=== PATIENT | male | born 1970 | race Caucasian/White ===

== ENCOUNTER 2023-11-17 16:30 | Emergency (ER) | payer BC, SELFPAY ==
[2023-11-17 16:33] VITALS: BP 140/95
--- NOTE | 2023-11-17 17:27 | ED.GENMED ---
History of Present Illness
General
Chief Complaint: Musculo-Skeletal Complaint
Source: patient
Exam Limitations: none
Time Seen by Provider: 11/17/23 17:20
Nursing documentation reviewed up to this point in time: agreed with
Travel History
Have you had any contact with someone who has COVID-19?: No
Do you have any symptoms of coronavirus? Fever > 100 degrees, chills, cough, shortness of breath, sore throat, loss of taste or smell, muscle aches, or headache?: No
History of Present Illness
History of Present Illness:
Patient is a 53-year-old male who presents to the ER complaining of pain. He complains of pain to the right lower back/hip area which radiates into his abdomen. It has been increasing since 12 PM. He denies any injury. He denies any history of
vomiting but does have slight nausea. Pain is present despite movement. He denies any fever chills rash. He denies any injury.
Past History
Past History
ED Past Medical History: GERD and Psychiatric (Anxiety); Negative HTN, IDDM, NIDDM or [place]
Social History
Tobacco: Non-smoker
Alcohol: None
Drug: None
Personal:
Living: with family
Employment: Employed
Family History
Family History: Other (Noncontributory); Negative Sudden
Review of Systems
Review of Systems
Allergies reviewed?: Yes
All Other Systems: ROS reviewed and negative except as documented in HPI and ROS
Constitutional: Reports no symptoms; Denies fever
Respiratory: Reports no symptoms
Cardiac: Reports no symptoms
ABD/GI: Denies nausea, vomiting or diarrhea
: Reports other (pain to right lower back )
Musculoskeletal: Reports back pain (right lower back pain )
Skin: Reports no symptoms
Neurological: Reports no symptoms
Psychiatric: Reports no symptoms
Phy Exam
General Physical Exam
General Presentation: no apparent distress
General age: appears stated age
General Skin: warm and dry
General Habitus: normal
General Mental: alert
Gastrointestinal Exam
Gastrointestinal Exam: soft and other ( mild tender to rlq )
Neurological Exam
Neurological Exam: alert and oriented x3
Musculoskeletal Exam
Musculoskeletal Exam: full ROM
Skin Exam
Skin Exam: normal color and warm/dry
Psychiatric Exam
Psychiatric Exam: normal mood/affect
Course
Orders/Labs/Results
Orders:
Orders
11/17/23 17:27
IV Insert/Care/Rem.- Treatment PRN
0.9% Sodium Chloride 1000 ml [Nss] 1,000 ml IV BOLUS
Ketorolac [Toradol] 15 mg IV NOW STA
11/17/23 18:00
CT Abd/pel W Iv And Oral Contr Urgent
Comment:
Reason For Exam: right abd pain
Complete Blood Count/With Diff Urgent
Comprehensive Metabolic Panel Urgent
Lipase Urgent
Iohexol [Omnipaque] See Protocol PO NOW STA
11/17/23 19:36
Urinalysis Reflex To Culture Urgent
Date Specimen was Collected: 11/17/23
Time Specimen was Collected: 19:30
11/17/23 21:34
Vital Signs- Treatment ONCE
Frequency: Once
Abnormal Lab Results
11/17/23 11/17/23
18:00 19:36
WBC 12.7 H 10^3/uL
(4.8-10.8)
RBC 4.64 L 10^6/uL
(4.70-6.10)
Absolute Neuts (auto) 11.4 H 10^3/uL
(1.4-6.5)
Absolute Lymphs (auto) 0.7 L 10^3/uL
(1.2-3.4)
Neutrophils % 90.0 H %
(42.2-75.2)
Lymphocytes % 5.6 L %
(20.5-51.1)
BUN 24 H mg/dl
(9-20)
Glucose 113 H mg/dl
(70-99)
Urine Ketones Trace A
(Negative)
11/17/23 18:00
11/17/23 18:00
Vital Signs
Initial and Last Documented VS:
Initial Vital Signs
Temp Pulse Resp BP Pulse Ox
98.0 F 64 16 140/95 98
11/17/23 16:33 11/17/23 16:33 11/17/23 16:33 11/17/23 16:33 11/17/23 16:33
Last Documented Vital Signs
Temp Pulse Resp BP Pulse Ox
98.0 F 64 16 140/95 98
11/17/23 16:33 11/17/23 16:33 11/17/23 16:33 11/17/23 16:33 11/17/23 16:33
MDM/Problems Addressed
Differential Diagnosis Includes:
Not limited to appendicitis, renal colic, muscle pain
MDM/Problems Addressed:
Patient presented with pain to the right lower abdomen/flank area. Pain persisted despite movement. On exam however he is mildly tender in the right lower quadrant white count minimally elevated normal renal function has no blood in urine.
Patient was given Toradol fluids Toradol did have symptoms. CAT scan with oral and IV contrast done which is negative for appendicitis sigmoid diverticulosis and no obstruction or free air. Unclear cause of patient's pain there is no rash shingles
considered I did review this with patient no fever. Will DC with ibuprofen with close outpatient follow-up by pcp.
In addition I did discuss the patient that since he is 53 he will need a colonoscopy as he has never had one Diverticulosis was found on CAT scan but not diverticulitis
*Radiology
Radiology exam reviewed: radiology read reviewed
*Pulse Oximetry
Patient hypoxic: no
*Critical Care Note
Total Time (30-74mins, 75-104mins- exclusive of procedures): Not Applicable
ED Attending Note
-
Portions of this chart may have been created with voice recognition software.� Occasional wrong word or��sound alike� substitutions may have occurred due to the inherent limitations of voice recognition software.
Discharge Plan
Departure
Patient Disposition: Home (Routine Discharge)
Date of Disposition: 11/17/23
Time of Disposition: 21:33
Patient with high blood pressure during this ER visit?: Yes
Condition: Fair
Covid-19: Not Applicable
Discharge Problem:
Abdominal pain
Instructions: Abdominal Pain, Adult ED, BLOOD PRESSURE
Prescriptions:
No Action
aspirin [Aspir-Low] 81 MG tablet,delayed release (DR/EC)
81 mg PO DAILY
budesonide 0.5 MG/2 ML suspension for nebulization
0.5 mg inhalation R BID
albuterol sulfate 1 PUFF HFA aerosol inhaler
1 puff inhalation R Q4HPRN PRN (Reason: asthma)
esomeprazole magnesium [Nexium] 20 MG capsule,delayed release(DR/EC)
20 mg PO DAILY
fish oil-dha-epa 1 EACH capsule
1 ea PO DAILY
Referrals:
UNKNOWN - PT DOES,NOT KNOW [Family Provider] -
Sandi Mcdonald, DO [Active] -
Activity Restrictions/Additional Instructions:
you may take Ibuprofen 600 mg every 8 hours with food. As discussed there is no clear cause for your pain identified here in the ER. Follow-up close with your family doctor in the next 2 to 3 days call tomorrow to make an appointment but return
if any worsening of symptoms. also as discussed you will need to see GI at some point for colonoscopy.
Interventions
Interventions:
*Risk Screen - Suicide Last Done: 11/17/23 18:13
*General Assessment Last Done: 11/17/23 18:13
*Neglect/Abuse Screening Last Done: 11/17/23 18:13
*ED COVID-19 Vaccine History Last Done: 11/17/23 16:33
*Nursing Disposition Last Done: 11/17/23 22:05
ED-Musculoskeletal Assessment Last Done: 11/17/23 18:11
Discharge Date and Time
Discharge Date/Time: 11/17/23 22:06
[2023-11-17 17:36] VITALS: BMI 24.4
[2023-11-17] MEDS: NSS 1000 IV (17:55)
[2023-11-17] MEDS: TORADOL 15 MG IV (17:56)
[2023-11-17] MEDS: OMNIPAQUE 50 ML PO (18:07)
[2023-11-17 18:09] LABS: % Basophils 0.4 % (0-2); % Eosinophils 0.8 % (0-6); % Immature Granulocytes 0.3 % (0-0.5); % Lymphocytes 5.6 % (20.5-51.1); % Monocytes 2.9 % (1.7-9.3); Absolute Basophils 0.1 10^3/uL (0-0.2); Absolute Eosinophils 0.1 10^3/uL (0-0.7); Absolute Lymphocytes 0.7 10^3/uL (1.2-3.4); Absolute Monocytes 0.4 10^3/uL (0.1-0.6); Absolute Neutrophils 11.4 10^3/uL (1.4-6.5); Hematocrit 41.1 % (39.0-52.0); Hemoglobin 14.4 g/dL (13.0-18.0); Mean Corpuscular Volume 88.6 fL (80.0-94.0); Mean Platelet Volume 10.2 fL (7.4-10.4); Nucleated Red Blood Cells % 0 % (-); Platelet Count 187 10^3/uL (130-400); Red Blood Cell Count 4.64 10^6/uL (4.70-6.10); Red Cell Dist. Width 12.3 % (11.5-14.5); White Blood Cell Count 12.7 10^3/uL (4.8-10.8)
[2023-11-17 18:28] LABS: ALT (SGPT) 36 U/L (0-50); AST (SGOT) 39 U/L (17-59); Albumin 4.6 g/dl (3.5-5.0); Alkaline Phosphatase 59 U/L (38-126); Blood Urea Nitrogen 24 mg/dl (9-20); Calcium 9.9 mg/dl (8.4-10.2); Carbon Dioxide 23 mmol/L (22-30); Chloride 106 mmol/L (98-107); Estimated Creatinine Clearance 102 ml/min; Glucose 113 mg/dl (70-99); Lipase 117 U/L (23-300); Potassium 4.3 mmol/L (3.5-5.1); Sodium 135 mmol/L (135-145); Total Bilirubin 0.6 mg/dl (0.2-1.3); Total Protein 7.2 g/dl (6.3-8.2); eGFR > 60.00
[2023-11-17 19:46] LABS: Urine Albumin Negative (Neg - Trace); Urine Bilirubin Negative (Negative); Urine Character Clear (Clear); Urine Color Straw; Urine Glucose Negative (Negative); Urine Ketone Trace (Negative); Urine Leukocyte Negative (Negative); Urine Nitrite Negative (Negative); Urine Occult Blood Negative (Negative); Urine Specific Gravity 1.025 (<1.030); Urine Urobilinogen Negative (Neg - 1+)
== END 2023-11-17 22:06 | disposition home or self-care (01) ==
LOC: EMR 16:30
PROVIDERS: Nurse Practitioner; EMERGENCY PHYSICIAN Student in an Organized Health Care Education/Training Program
DX: R10.9 Unspecified abdominal pain (principal); R03.0 Elevated blood-pressure reading, without diagnosis of hypertension; K57.90 Diverticulosis of intestine, part unspecified, without perforation or abscess without bleeding; K21.9 Gastro-esophageal reflux disease without esophagitis; F41.9 Anxiety disorder, unspecified; J45.909 Unspecified asthma, uncomplicated
CPT/HCPCS: 99285; 74177; 80053; 81003; 83690; 85025; Q9967

== ENCOUNTER 2025-07-05 14:02 | Emergency (ER) | payer BC, SELFPAY ==
[2025-07-05 14:05] VITALS: BP 140/102
[2025-07-05 14:36] VITALS: BMI 25.1
--- NOTE | 2025-07-05 14:37 | ED.GENMED ---
History of Present Illness
General
Chief Complaint: Cardiac Symptoms
Time Seen by Provider: 07/05/25 14:25
History of Present Illness
History of Present Illness:
Patient presents to the emergency department with an episode of lightheadedness and palpitations. Symptoms started this morning. He notes feeling generally unwell today. States that he was having a little bit of trouble catching his breath on his
morning walk. He went to get pizza and felt that his heart was beating irregularly. He checked his pulse and found to be in trigeminy. There was no syncopal event. No chest pain. No leg swelling.
Past History
Past History
ED Past Medical History: GERD and Psychiatric (Anxiety); Negative HTN, IDDM, NIDDM or [place]
Social History
Tobacco: Non-smoker
Alcohol: None
Drug: None
Personal:
Living: with family
Employment: Employed
Family History
Family History: Other (Noncontributory); Negative Sudden
Phy Exam
Physical Exam
Physical Exam:
GENERAL APPEARANCE: NAD, well developed/ well nourished
EYES lids/conjunctiva normal
EARS/NOSE/THROAT Mucous membranes moist, uvula midline without oral pharyngeal erythema, exudate or swelling
HEAD/NECK normocephalic atraumatic, neck is supple.
RESPIRATORY respiratory effort normal, speaks in full sentences, no accessory muscle use. Lungs clear to auscultation without rhonchi, wheezes, rales
CARDIAC regular rate, frequent ectopy
ABDOMINAL Soft, ND/NT. No pulsatile masses on exam, rebound tenderness, Remy sign or pain over Mcburney's point.
MUSCLES/EXTREMITIES No abnormal range of motion, no swelling.
SKIN Warm, pink and dry. No rashes
NEUROLOGICAL Speech is clear and appropriate. Normal level of consciousness. 5/5 strength in all extremities.
PSYCH Normal mood and affect. Judgement/competence is appropriate
Course
Orders/Labs/Results
Orders:
Orders
07/05/25 14:04
EKG [Electrocardiogram (*1)] Urgent
Reason for Study: Chest Pain
EKG- Treatment ONCE
07/05/25 14:36
CR Chest - 2 Views Urgent
Comment:
Reason For Exam: sob
07/05/25 14:50
Basic Metabolic Panel Urgent
Complete Blood Count/With Diff Urgent
D-Dimer Urgent
Magnesium Urgent
Troponin I Urgent
07/05/25 17:23
Electrocardiogram (*1) Urgent
Reason for Study: Palpitations
07/05/25 17:47
Troponin I Urgent
Abnormal Lab Results
07/05/25
14:50
MCH 31.1 H pg
(27.0-31.0)
MPV 10.7 H fL
(7.4-10.4)
Absolute Lymphs (auto) 1.1 L 10^3/uL
(1.2-3.4)
Lymphocytes % 19.9 L %
(20.5-51.1)
BUN 23 H mg/dl
(9-20)
Glucose 101 H mg/dl
(70-99)
07/05/25 14:50
07/05/25 14:50
Vital Signs
Initial and Last Documented VS:
Initial Vital Signs
Temp Pulse Resp BP Pulse Ox
98.2 F 64 20 140/102 99
07/05/25 14:05 07/05/25 14:05 07/05/25 14:05 07/05/25 14:05 07/05/25 14:05
Last Documented Vital Signs
Temp Pulse Resp BP Pulse Ox
98.2 F 77 17 126/90 98
07/05/25 14:05 07/05/25 18:30 07/05/25 18:30 07/05/25 18:00 07/05/25 18:30
*Pulse Oximetry
SaO2: 98
Oxygen Mode of Delivery: Room air
Patient hypoxic: no
*Critical Care Note
Total Time (30-74mins, 75-104mins- exclusive of procedures): Not Applicable
ED Attending Note
ED Attending Note
ED Attending Note:
patient with palppitations found to have PACs. Hemodynamically stable. No other concerning findings on EKG. No electrolyte or metabolic explanation. 2 set troponin negative. Patient chest pain free. Will dc with cardiology follow up
-
Portions of this chart may have been created with voice recognition software.� Occasional wrong word or��sound alike� substitutions may have occurred due to the inherent limitations of voice recognition software.
Discharge Plan
Departure
Patient Disposition: Home (Routine Discharge)
Date of Disposition: 07/05/25
Time of Disposition: 18:34
Patient with high blood pressure during this ER visit?: Yes
Discharge Problem:
Heart palpitations, Near syncope, PAC (premature atrial contraction)
Instructions: Overview of heart arrhythmias
Prescriptions:
No Action
aspirin [Aspir-Low] 81 MG tablet,delayed release (DR/EC)
81 mg PO DAILY
budesonide 0.5 MG/2 ML suspension for nebulization
0.5 mg inhalation R BID
albuterol sulfate 1 PUFF HFA aerosol inhaler
1 puff inhalation R Q4HPRN PRN (Reason: asthma)
esomeprazole magnesium [Nexium] 20 MG capsule,delayed release(DR/EC)
20 mg PO DAILY
fish oil-dha-epa 1 EACH capsule
1 ea PO DAILY
Referrals:
Colby Strauss MD [Family Provider, Family Practice]
Juan Trejo MD [Active, Cardiology]
Interventions
Interventions:
*Risk Screen - Suicide Last Done: 07/05/25 14:05
*General Assessment Last Done: 07/05/25 14:31
*Neglect/Abuse Screening Last Done: 07/05/25 14:31
*ED- Fall Risk Assessment Last Done: 07/05/25 14:31
*ED COVID-19 Vaccine History Last Done: 07/05/25 14:31
*ED Influenza Vaccine History Last Done: 07/05/25 14:31
*Nursing Disposition Last Done: 07/05/25 18:52
ED- Pulmonary Assessment Last Done: 07/05/25 14:37
ED- Cardiac Assessment Last Done: 07/05/25 14:37
Discharge Date and Time
Discharge Date/Time: 07/05/25 18:53
Print Language: ARGENTINE
[2025-07-05 15:03] LABS: Hematocrit 43.5 % (39.0-52.0); Hemoglobin 15.1 g/dL (13.0-18.0); Mean Corp Hgb Conc. 34.7 g/dL (33.0-37.0); Mean Corpuscular Volume 89.5 fL (80.0-94.0); Nucleated Red Blood Cells % 0 % (-); Platelet Count 182 10^3/uL (130-400); Red Cell Dist. Width 12.1 % (11.5-14.5)
[2025-07-05 15:14] LABS: D-Dimer 0.33 ug/mlFEU (0.00-0.50)
[2025-07-05 15:26] LABS: Blood Urea Nitrogen 23 mg/dl (9-20); Calcium 9.3 mg/dl (8.4-10.2); Carbon Dioxide 22 mmol/L (22-30); Chloride 107 mmol/L (98-107); Estimated Creatinine Clearance 89 ml/min; Glucose 101 mg/dl (70-99); Magnesium 2.1 mg/dl (1.6-2.3); Potassium 4.1 mmol/L (3.5-5.1); Sodium 137 mmol/L (135-145); eGFR > 60.00
[2025-07-05 15:28] LABS: Troponin I 0.018 ng/ml
[2025-07-05 16:56] VITALS: BP 124/91
[2025-07-05 17:00] VITALS: BP 119/85
[2025-07-05 18:00] VITALS: BP 126/90
[2025-07-05 18:21] LABS: Troponin I < 0.012 ng/ml
== END 2025-07-05 18:53 | disposition home or self-care (01) ==
LOC: EMR 14:02
PROVIDERS: EMERGENCY PHYSICIAN Emergency Medicine; FAMILY PHYSICIAN Family Medicine
DX: R00.2 Palpitations (principal); R55 Syncope and collapse; I49.1 Atrial premature depolarization; R03.0 Elevated blood-pressure reading, without diagnosis of hypertension; K21.9 Gastro-esophageal reflux disease without esophagitis; F41.9 Anxiety disorder, unspecified; Z79.82 Long term (current) use of aspirin
CPT/HCPCS: 99284; 71046; 80048; 83735; 84484; 85025; 85379; 93005

== ENCOUNTER → 2025-07-28 07:30 | Outpatient (REF) | payer BC, SELFPAY | LOC: RCS 07:30 | PROVIDERS: ATTENDING PHYSICIAN Student in an Organized Health Care Education/Training Program; FAMILY PHYSICIAN Family Medicine | DX: R06.02 Shortness of breath (principal) | CPT/HCPCS: 93017 ==

== ENCOUNTER 2025-07-30 08:41 | Emergency (ER) | payer BC, SELFPAY ==
[2025-07-30 08:54] VITALS: BP 116/79
[2025-07-30 08:59] VITALS: BMI 27.5
[2025-07-30 09:00] VITALS: BP 125/91
--- NOTE | 2025-07-30 09:09 | ED.GENMED ---
History of Present Illness
General
Chief Complaint: Chest Pain
Source: patient
Time Seen by Provider: 07/30/25 08:46
History of Present Illness
History of Present Illness:
55-year-old male with past medical history of GERD, asthma, anxiety, recently dealing with palpitations seen in this emergency department a little less than 1 month ago presenting back to the emergency department with EMS for evaluation after he was
at [facility] doing some light exercise when he started to get some chest discomfort and palpitations, patient felt near syncopal but never passed out, was able to get back to his car to drive home but did not feel well the entire time home.
After getting home he felt he needed to have a bowel movement but never had to and felt slightly nauseous, notified his daughter acted EMS. EMS provided the patient with 3 sublingual nitroglycerin as well as aspirin with reported relief of
symptoms. Patient did follow-up with cardiology following his visit to the ER last month and was arranged for an outpatient stress test which she completed which she states was normal during the exercise but during the cooldown period was noted to
have some type of abnormality and is scheduled to wear a Holter monitor next week. At time of my exam patient states he still feels as if he is not back to fully normal but is declining any chest pain, shortness of breath, abdominal pain, nausea or
vomiting or any other concerns
Past History
Past History
ED Past Medical History: Asthma, GERD and Psychiatric (Anxiety); Negative HTN, IDDM, NIDDM or [place]
ED Past Surgical History: Orthopedic
Social History
Tobacco: Non-smoker
Alcohol: None
Drug: None
Personal:
Living: with family
Employment: Employed
Family History
Family History: Other (Noncontributory); Negative Sudden
Review of Systems
Review of Systems
All Other Systems: ROS reviewed and negative except as documented in HPI and ROS
Phy Exam
Physical Exam
Physical Exam:
GENERAL: Alert , in no apparent distress, anxious affect
HEAD: Normocephalic atraumatic
EYE: Clear conjunctiva
NECK: Supple
ENT: mmm.
CARDIAC: Regular rate and rhythm, occasional PAC on telemetry .
LUNGS: Clear breath sounds bilaterally, no acute respiratory distress, no wheezes/rales/rhonchi
ABDOMEN: Soft, without focal tenderness, no r/g, no cvat
NEUROLOGICAL: Alert and oriented
SKIN: Warm and dry, skin intact.
MUSCULOSKELETAL: No edema, well perfused.
PSYCH: Normal and appropriate interaction.
Scores
Heart Failure Risk
Heart Failure Risk Score: Not Applicable
Heart Score for Chest Pain Patients
STEMI patient?: Not applicable
Withdrawal Assessment of Alcohol
Withdrawal Assessment Completed?: Not applicable
Course
Orders/Labs/Results
Orders:
Orders
07/30/25 08:44
Electrocardiogram (*1) Urgent
Reason for Study: Chest Pain
EKG- Treatment ONCE
Basic Metabolic Panel Urgent
Complete Blood Count/With Diff Urgent
Troponin I Urgent
07/30/25 09:07
Echo 2D MMode Color/Doppler Urgent
Reason for Study: palpitations, near syncope
CR Chest - 2 Views Urgent
Comment:
Reason For Exam: chest pain, near syncope, palpitations
07/30/25 11:36
Troponin I Urgent
Abnormal Lab Results
07/30/25
08:44
RBC 4.57 L 10^6/uL
(4.70-6.10)
MCH 31.1 H pg
(27.0-31.0)
MPV 11.0 H fL
(7.4-10.4)
Chloride 108 H mmol/L
(98-107)
BUN 28 H mg/dl
(9-20)
Glucose 108 H mg/dl
(70-99)
07/30/25 08:44
07/30/25 08:44
Vital Signs
Initial and Last Documented VS:
Initial Vital Signs
Pulse Resp Pulse Ox
70 18 99
07/30/25 08:51 07/30/25 08:51 07/30/25 08:51
Last Documented Vital Signs
Temp Pulse Resp BP Pulse Ox
97.6 F 68 12 131/89 100
07/30/25 08:54 07/30/25 12:15 07/30/25 12:15 07/30/25 12:00 07/30/25 12:15
MDM/Problems Addressed
Differential Diagnosis Includes:
Arrhythmia
ACS
Valvular disease
Anxiety
Electrolyte Imablance
MDM/Problems Addressed:
55-year-old male presenting the ER for evaluation following a near syncopal episode while walking at a local park earlier today, recent visit to the ER for palpitations, no specific etiologies found at that time however patient did have arrhythmia
during a stress test recently. Arrives to the ER mostly symptom-free. Hemodynamically stable. Will check labs, keep on telemetry and discussed with cardiology with plan to attempt to obtain echocardiogram today. Disposition pending
*Radiology
Radiology exam reviewed: radiology read reviewed
*Pulse Oximetry
SaO2: 98
Oxygen Mode of Delivery: Room air
Patient hypoxic: no
*Critical Care Note
Total Time (30-74mins, 75-104mins- exclusive of procedures): Not Applicable
Data Reviewed
Review of Other/Old Records Reveals: Labs and Records
Patient Management
Discussion with other providers: [employer]
Escalation/DeEscalation of care consider admission/obs:
Patient's repeat troponin negative, has remained stable on telemetry without any ectopy or arrhythmia. Echocardiogram without any abnormalities seen. Patient stable for discharge home and continued outpatient follow-up with cardiology where he is
scheduled to get his Holter monitor this coming week. Patient aware of return precautions. Stable for discharge.
ED Attending Note
-
Portions of this chart may have been created with voice recognition software.� Occasional wrong word or��sound alike� substitutions may have occurred due to the inherent limitations of voice recognition software.
Discharge Plan
Departure
Patient Disposition: Home (Routine Discharge)
Date of Disposition: 07/30/25
Time of Disposition: 12:22
Patient with high blood pressure during this ER visit?: No
Discharge Problem:
Palpitations, Near syncope
Instructions: Palpitations - ED (DC)
Prescriptions:
No Action
aspirin [Aspir-Low] 81 MG tablet,delayed release (DR/EC)
81 mg PO DAILY
budesonide 0.5 MG/2 ML suspension for nebulization
0.5 mg inhalation R BID
albuterol sulfate 1 PUFF HFA aerosol inhaler
1 puff inhalation R Q4HPRN PRN (Reason: asthma)
esomeprazole magnesium [Nexium] 20 MG capsule,delayed release(DR/EC)
20 mg PO DAILY
fish oil-dha-epa 1 EACH capsule
1 ea PO DAILY
Referrals:
Colby Strauss MD [Family Provider, Family Practice]
Interventions
Interventions:
*Risk Screen - Suicide Last Done: 07/30/25 08:54
*General Assessment Last Done: 07/30/25 08:54
*Neglect/Abuse Screening Last Done: 07/30/25 08:54
*ED- Fall Risk Assessment Last Done: 07/30/25 09:01
*ED COVID-19 Vaccine History Last Done: 07/30/25 08:54
*ED Influenza Vaccine History Last Done: 07/30/25 08:54
*Nursing Disposition Last Done: 07/30/25 12:30
ED- Cardiac Assessment Last Done: 07/30/25 08:54
Discharge Date and Time
Discharge Date/Time: 07/30/25 12:31
Print Language: FILIPINO
[2025-07-30 09:10] LABS: Hematocrit 41.0 % (39.0-52.0); Hemoglobin 14.2 g/dL (13.0-18.0); Mean Corp Hgb Conc. 34.6 g/dL (33.0-37.0); Mean Corpuscular Volume 89.7 fL (80.0-94.0); Nucleated Red Blood Cells % 0 % (-); Platelet Count 179 10^3/uL (130-400); Red Cell Dist. Width 12.4 % (11.5-14.5)
[2025-07-30 09:13] LABS: Blood Urea Nitrogen 28 mg/dl (9-20); Calcium 9.5 mg/dl (8.4-10.2); Carbon Dioxide 25 mmol/L (22-30); Chloride 108 mmol/L (98-107); Estimated Creatinine Clearance 84 ml/min; Glucose 108 mg/dl (70-99); Sodium 138 mmol/L (135-145); eGFR > 60.00
[2025-07-30 09:21] LABS: Troponin I < 0.012 ng/ml
[2025-07-30 10:00] VITALS: BP 117/89
[2025-07-30 11:00] VITALS: BP 120/92
[2025-07-30 12:00] VITALS: BP 131/89
[2025-07-30 12:15] LABS: Troponin I < 0.012 ng/ml
== END 2025-07-30 12:31 | disposition home or self-care (01) ==
LOC: EMR 08:41
PROVIDERS: Physician Assistant Medical; EMERGENCY PHYSICIAN Student in an Organized Health Care Education/Training Program; FAMILY PHYSICIAN Family Medicine
DX: R00.2 Palpitations (principal); R55 Syncope and collapse; K21.9 Gastro-esophageal reflux disease without esophagitis; J45.909 Unspecified asthma, uncomplicated; F41.9 Anxiety disorder, unspecified; I08.1 Rheumatic disorders of both mitral and tricuspid valves
CPT/HCPCS: 99283; 71046; 80048; 84484; 85025; 93005; 93306